=== PATIENT | female | born 1985 | race Hispanic/Latino ===

== ENCOUNTER 2017-07-26 14:53 | Emergency (ER) | payer OTHER, SELFPAY ==
[2017-07-26] MEDS ORDERED: predniSONE 20 MG TAB ONE (15:16)
[2017-07-26] MEDS ORDERED: Famotidine 20 MG TAB ONE (15:42)
== END 2017-07-26 15:45 | disposition home or self-care (01) ==
LOC: SCSER 14:53
DX: T78.1XXA Other adverse food reactions, not elsewhere classified, initial encounter (principal); F41.9 Anxiety disorder, unspecified; F32.9 Major depressive disorder, single episode, unspecified
CPT/HCPCS: 99282; J7506